=== PATIENT | male | born 1995 | race Caucasian/White ===

== ENCOUNTER → 2022-06-13 | Outpatient (CLI) | payer BC ==
[2022-06-13 11:53] LABS: HEMATOCRIT 40.6 % (42.0-52.0); HEMOGLOBIN 13.5 g/dL (13.5-18.0); MEAN CELL VOLUME 93 fl (78-100); MEAN CORPUSCULAR HEMOGLOBIN 31 pg (27-31); MEAN CORPUSCULAR HGB CONC 33 g/dL (33-37); MEAN PLATELET VOLUME 8.3 fl (7.4-10.4); PLATELET COUNT 373 K/mm3 (130-400); RED BLOOD COUNT 4.35 M/mm3 (4.20-5.60); RED CELL DISTRIBUTION WIDTH 12.9 % (11.5-14.5); WHITE BLOOD COUNT 4.5 K/mm3 (4.8-10.8)
[2022-06-13 11:59] LABS: ALBUMIN 4.4 g/dL (3.5-5.0); POTASSIUM 4.3 mmol/L (3.5-5.1)
[2022-06-13 12:00] LABS: CALCIUM 9.7 mg/dL (8.3-10.5)
[2022-06-13 12:02] LABS: TOTAL PROTEIN 8.4 g/dL (6.4-8.3)
[2022-06-13 12:04] LABS: TOTAL BILIRUBIN 0.4 mg/dL (0.2-1.2)
[2022-06-13 12:34] LABS: BAND 3 % (0-10); LYMPHOCYTE 58 % (20-51); MONOCYTE 3 % (3-10); NEUTROPHILS 35 % (42-75)
== END ==
LOC: LAB 11:17
PROVIDERS: Family Medicine
DX: Z00.00 Encounter for general adult medical examination without abnormal findings (principal); E78.5 Hyperlipidemia, unspecified; J45.909 Unspecified asthma, uncomplicated; B20 Human immunodeficiency virus [HIV] disease; G43.909 Migraine, unspecified, not intractable, without status migrainosus; D64.9 Anemia, unspecified; F41.9 Anxiety disorder, unspecified; F32.A Depression, unspecified; F51.5 Nightmare disorder; G40.909 Epilepsy, unspecified, not intractable, without status epilepticus; J30.2 Other seasonal allergic rhinitis

== ENCOUNTER → 2024-10-04 | Outpatient (CLI) | payer BC | LOC: RAD 09:33 | DX: M25.511 Pain in right shoulder (principal) ==